=== PATIENT | female | born 1960 | race Two or more races ===

== ENCOUNTER 2018-01-05 14:13 | Emergency (ER) | payer BC ==
[~2018-01-05] VITALS: Ht 172.7 cm; Wt 117.9 kg
[~2018-01-05 14:13] MED LIST: CHOL10002 PO; CIPR500T PO; HYDR12.53 PO; LOSA100T7 PO; METR250T PO
[2018-01-05 14:38] LABS: BILIRUBIN,URINE NEGATIVE (NEG); CLARITY,URINE CLEAR; COLOR,URINE YELLOW; NITRITE,URINE NEGATIVE (NEG); PROTEIN,URINE NEGATIVE (NEG-TRACE); UROBILINOGEN,URINE 0.2 mg/dL (0.2 mg/dL)
--- NOTE | 2018-01-05 14:41 | PHYS DOC ---
Adult General Chief Complaint Chief Complaint: ABDOMINAL PAIN HPI HPI Patient is a 57 year old female with history of hypertension, high cholesterol , who presents today complaining of a cramping 8 out of 10 bilateral lower abdominal pain that has been going on intermittently for the last 3 days. Patient denies anything exacerbating or making the pain better. She is also complaining of nausea with no vomiting and loose stools. Denies any hematemesis or melena. PCP Dr. Melo Review of Systems Review of Systems Constitutional: Denies fever or chills [] Eyes: Denies change in visual acuity, redness, or eye pain [] HENT: Denies nasal congestion or sore throat [] Respiratory: Denies cough or shortness of breath [] Cardiovascular: No additional information not addressed in HPI [] GI: Reports lower abdominal cramping, nausea, diarrhea, denies any vomiting. : Denies dysuria or hematuria [] Musculoskeletal: Denies back pain or joint pain [] Integument: Denies rash or skin lesions [] Neurologic: Denies headache, focal weakness or sensory changes [] All other systems were reviewed and found to be within normal limits, except as documented in this note. Current Medications Current Medications Current Medications Medications (Trade) Dose Ordered Sig/Karan Start Time Stop Time Status Last Admin Dose Admin Dicyclomine HCl (Bentyl) 20 mg 1X ONCE 01/05/18 14:45 01/05/18 14:46 DC 01/05/18 15:03 20 MG Info (CONTRAST GIVEN -- Rx MONITORING) 1 each PRN DAILY PRN 01/05/18 15:30 01/07/18 15:29 Iohexol (Omnipaque 300 Mg/ml) 75 ml 1X ONCE 01/05/18 15:15 01/05/18 15:18 DC 01/05/18 15:27 75 ML Losartan Potassium (Cozaar) 25 mg 1X STAT 01/05/18 14:35 01/05/18 14:39 DC 01/05/18 14:46 25 MG Metoprolol Tartrate (Lopressor Vial) 5 mg 1X ONCE 01/05/18 14:45 01/05/18 14:46 DC 01/05/18 15:04 5 MG Ondansetron HCl (Zofran) 4 mg 1X ONCE 01/05/18 14:45 01/05/18 14:46 DC 01/05/18 15:04 4 MG Sodium Chloride 1,000 ml @ 1,000 mls/hr 1X ONCE 01/05/18 14:45 01/05/18 15:44 DC 01/05/18 15:03 1,000 MLS/HR Allergies Allergies Allergies Coded Allergies Type Severity Reaction Last Updated Verified Penicillins Allergy Intermediate Hives 01/18/14 Yes Physical Exam Physical Exam Constitutional: Well developed, well nourished, no acute distress, non-toxic appearance. [] HENT: Normocephalic, atraumatic, bilateral external ears normal, oropharynx moist, no oral exudates, nose normal. [] Eyes: PERRLA, EOMI, conjunctiva normal, no discharge. [] Neck: Normal range of motion, no tenderness, supple, no stridor. [] Cardiovascular:Heart rate regular rhythm, no murmur [] Lungs & Thorax: Bilateral breath sounds clear to auscultation [] Abdomen: Bowel sounds normal, soft, no tenderness, no masses, no pulsatile masses. [] Skin: Warm, dry, no erythema, no rash. [] Back: No tenderness, no CVA tenderness. [] Extremities: No tenderness, no cyanosis, no clubbing, ROM intact, no edema. [] Neurologic: Alert and oriented X 3, normal motor function, normal sensory function, no focal deficits noted. [] Psychologic: Affect normal, judgement normal, mood normal. [] Current Patient Data Vital Signs Vital Signs Date Time Temp Pulse Resp B/P (MAP) Pulse Ox O2 Delivery O2 Flow Rate FiO2 01/05/18 15:04 184/81 01/05/18 14:46 92 01/05/18 14:13 98.2 20 97 Room Air 98.2 Lab Values Laboratory Tests Test 01/05/18 14:15 01/05/18 14:38 01/05/18 14:55 Urine Collection Type Unknown Urine Color Yellow Urine Clarity Clear Urine pH 6.0 Urine Specific Alba 1.015 Urine Protein Negative mg/dL (NEG-TRACE) Urine Glucose (UA) Negative mg/dL (NEG) Urine Ketones (Stick) Negative mg/dL (NEG) Urine Blood Trace (NEG) Urine Nitrite Negative (NEG) Urine Bilirubin Negative (NEG) Urine Urobilinogen Dipstick 0.2 mg/dL (0.2 mg/dL) Urine Leukocyte Esterase Negative (NEG) Urine RBC 0 /HPF (0-2) Urine WBC Occ /HPF (0-4) Urine Squamous Epithelial Cells Many /LPF Urine Bacteria Moderate /HPF (0-FEW) Sodium Level 139 mmol/L (136-145) Potassium Level 3.6 mmol/L (3.5-5.1) Chloride Level 105 mmol/L (98-107) Carbon Dioxide Level 22 mmol/L (21-32) Anion Gap 12 (6-14) Blood Urea Nitrogen 9 mg/dL (7-20) Creatinine 0.8 mg/dL (0.6-1.0) Estimated GFR (Cockcroft-Gault) 74.5 BUN/Creatinine Ratio 11 (6-20) Glucose Level 139 mg/dL (70-99) H Calcium Level 9.2 mg/dL (8.5-10.1) Total Bilirubin 0.5 mg/dL (0.2-1.0) Aspartate Amino Transferase (AST) 28 U/L (15-37) Alanine Aminotransferase (ALT) 47 U/L (14-59) Alkaline Phosphatase 147 U/L (46-116) H Total Protein 7.9 g/dL (6.4-8.2) Albumin 3.1 g/dL (3.4-5.0) L Albumin/Globulin Ratio 0.6 (1.0-1.7) L Lipase 114 U/L (73-393) White Blood Count 8.5 x10^3/uL (4.0-11.0) Red Blood Count 4.47 x10^6/uL (3.50-5.40) Hemoglobin 13.3 g/dL (12.0-15.5) Hematocrit 38.6 % (36.0-47.0) Mean Corpuscular Volume 86 fL (79-100) Mean Corpuscular Hemoglobin 30 pg (25-35) Mean Corpuscular Hemoglobin Concent 34 g/dL (31-37) Red Cell Distribution Width 15.5 % (11.5-14.5) H Platelet Count 175 x10^3/uL (140-400) Neutrophils (%) (Auto) 68 % (31-73) Lymphocytes (%) (Auto) 20 % (24-48) L Monocytes (%) (Auto) 10 % (0-9) H Eosinophils (%) (Auto) 1 % (0-3) Basophils (%) (Auto) 1 % (0-3) Neutrophils # (Auto) 5.8 x10^3uL (1.8-7.7) Lymphocytes # (Auto) 1.7 x10^3/uL (1.0-4.8) Monocytes # (Auto) 0.8 x10^3/uL (0.0-1.1) Eosinophils # (Auto) 0.1 x10^3/uL (0.0-0.7) Basophils # (Auto) 0.0 x10^3/uL (0.0-0.2) Laboratory Tests 01/05/18 14:55 Laboratory Tests 01/05/18 14:38 EKG EKG [] Radiology/Procedures Radiology/Procedures []PROCEDURE: CT ABD PELV W/ IV CONTRST ONLY Examination: CT of the abdomen pelvis with IV contrast HISTORY: History of abdominal pain, nausea, diarrhea COMPARISON: 08/17/2011 TECHNIQUE: Axial CT images of the abdomen pelvis were performed with IV contrast. Coronal and sagittal reformats are performed. Exposure: One or more of the following individualized dose reduction techniques were utilized for this examination: 1. Automated exposure control 2. Adjustment of the mA and/or kV according to patient size 3. Use of iterative reconstruction technique FINDINGS: Minimal bibasilar lung atelectasis. No evidence of free air identified in the abdomen. There is mild decreased attenuation noted in the liver likely hepatic steatosis. The visualized spleen, adrenals grossly appears unremarkable. The gallbladder is minimally distended. The the stomach is mildly distended. The visualized pancreas grossly appears unremarkable. The small bowel is nondilated. The appendix is normal. Feces and gas noted in the colon. Multiple sigmoid colon diverticulosis identified. There is moderate to severe inflammatory fat stranding identified in the distal descending colon with moderate focal thickening of the distal descending colon wall likely acute diverticulitis. Urinary bladder is mildly distended. Bilateral kidneys enhance symmetrically. No evidence of lytic bony destructive lesion. IMPRESSION: 1. Moderate to severe inflammatory fat stranding identified in the distal descending colon likely acute diverticulitis. There is focal thickening of the distal descending colon wall probably due to underlying inflammation. Follow-up colonoscopy is recommended after acute episode is resolved to exclude malignancy. 2. Hepatic steatosis. Electronically signed by: Leobardo Macias MD (01/05/2018 3:45 PM) [id number] DICTATED and SIGNED BY: LEOBARDO MACIAS MD DATE: 01/05/18 1537 Course & Med Decision Making Course & Med Decision Making Pertinent Labs and Imaging studies reviewed. (See chart for details) This is a 57-year-old female patient presenting to the ED today with complaints of abdominal cramping nausea and diarrhea for 3 days. CBC with normal WBC, normal hemoglobin and hematocrit. Chemistry with ALK 147. Urine analysis is contaminated though no infection. CT of the abdomen and pelvic is noted for diverticulitis no abscess. Follow-up colonoscopy was recommended after infection is cleared up. Instructed patient to follow-up with PCP or GI to schedule the colonoscopy. Discharged on Cipro, Flagyl, hydrocodone and Zofran. Also given prescription for dicyclomine. Provided return precautions and discharged in stable condition. Emphasis to patient the importance of taking her blood pressure medications, blood pressure was 213/99 on arrival to the ED, she had not taken any of her medications. We gave her medicines, blood pressures come down to 160s over 70s. She has known cardiac or neurological symptoms. Dragon Disclaimer Dragon Disclaimer This electronic medical record was generated, in whole or in part, using a voice recognition dictation system. Departure Departure Impression: Primary Impression: Acute diverticulitis Additional Impression: Hypertension Disposition: 01 HOME, SELF-CARE Condition: STABLE Referrals: NON,STAFF (PCP) TERRENCE KEENAN MD Follow-up with your primary care doctor as well as the provided medical educator in 2 weeks for follow-up colonoscopy. Patient Instructions: Diverticulitis, [id number], Hypertension Additional Instructions: You evaluated in the emergency room and noted to have diverticulitis. We'll put you on antibiotics, ensure you complete them. Follow-up with the provided medical educator in 2 weeks, they need to do a colonoscopy to ensure the infection has cleared up and there is no other disease in your colon. Scripts Hydrocodone/Apap 5-325 (NORCO 5-325 TABLET) 1 Each Tablet 1 TAB PO Q6HRS PRN for PAIN, #12 TAB Prov: MUTUNGA,KATHERINE [employer] 01/05/18 Dicyclomine Hcl (DICYCLOMINE HCL) 20 Mg Tablet 1 TAB PO TID, #30 TAB 1 Refill Prov: MUTUNGA,KATHERINE [employer] 01/05/18 Ondansetron (ZOFRAN ODT) 4 Mg Tab.rapdis 1 TAB SL Q8HRS, #15 TAB Prov: KATHERINE MONIQUE APRN 01/05/18 Metronidazole (FLAGYL) 500 Mg Tablet 500 MG PO TID, #30 TAB Prov: KATHERINE MONIQUE APRN 01/05/18 Ciprofloxacin Hcl (CIPRO) 500 Mg Tablet 1 TAB PO BID, #20 TAB Prov: KATHERINE MONIQUE APRN 01/05/18 Problem Qualifiers Additional Impression: Hypertension Hypertension type: unspecified Qualified Codes: I10 - Essential (primary) hypertension KATHERINE MONIQUE APRN Jan 05, 2018 14:41
[2018-01-05] MEDS: LOSARTAN POTASSIUM 25 MG TABLET. PO STA (14:46)
[2018-01-05 14:49] LABS: BACTERIA,URINE MODERATE /HPF (0-FEW); RBC,URINE 0 /HPF (0-2); WBC,URINE OCC /HPF (0-4)
[2018-01-05 14:50] LABS: SQUAMOUS EPITHELIAL CELL,UR MANY /LPF
[2018-01-05 14:57] LABS: CALCIUM 9.2 mg/dL (8.5-10.1); CREATININE 0.8 mg/dL (0.6-1.0); GFR 74.5; POTASSIUM 3.6 mmol/L (3.5-5.1)
[2018-01-05 15:03] LABS: ALBUMIN 3.1 g/dL (3.4-5.0); ALBUMIN/GLOBULIN RATIO 0.6 (1.0-1.7); TOTAL BILIRUBIN 0.5 mg/dL (0.2-1.0); TOTAL PROTEIN 7.9 g/dL (6.4-8.2)
[2018-01-05] MEDS: DICYCLOMINE HCL 10 MG CAPSULE PO ONE (15:03)
[2018-01-05] MEDS: IV NORMAL SALINE 1000ML BAG 1,000 ML IV ONE (15:03)
[2018-01-05] MEDS: ONDANSETRON PF 4 MG/2 ML VIAL. IV ONE (15:04)
[2018-01-05] MEDS: METOPROLOL TARTRATE 5 MG/5 ML VIAL. IVP ONE (15:04)
[2018-01-05 15:21] LABS: BASO % 1 % (0-3); EOS # 0.1 x10^3/uL (0.0-0.7); EOS % 1 % (0-3); HEMATOCRIT 38.6 % (36.0-47.0); HEMOGLOBIN 13.3 g/dL (12.0-15.5); LYMPH # 1.7 x10^3/uL (1.0-4.8); LYMPH % 20 % (24-48); MEAN CORPUSCULAR HEMOGLOBIN 30 pg (25-35); MEAN CORPUSCULAR HGB CONC 34 g/dL (31-37); MEAN CORPUSCULAR VOLUME 86 fL (79-100); MONO # 0.8 x10^3/uL (0.0-1.1); MONO % 10 % (0-9); NEUT # 5.8 x10^3uL (1.8-7.7); NEUT % 68 % (31-73); PLATELET COUNT 175 x10^3/uL (140-400); RED BLOOD COUNT 4.47 x10^6/uL (3.50-5.40); RED CELL DISTRIBUTION WIDTH 15.5 % (11.5-14.5); WHITE BLOOD COUNT 8.5 x10^3/uL (4.0-11.0)
[2018-01-05] MEDS: IOHEXOL 300 MG/ML 100ML VIAL. IV ONE (15:27)
[2018-01-05] MEDS ORDERED: CONTRAST GIVEN. MC PRN (15:30)
--- NOTE | 2018-01-05 15:48 | RAD ---
Examination: CT of the abdomen pelvis with IV contrast HISTORY: History of abdominal pain, nausea, diarrhea COMPARISON: 08/17/2011 TECHNIQUE: Axial CT images of the abdomen pelvis were performed with IV contrast. Coronal and sagittal reformats are performed. Exposure: One or more of the following individualized dose reduction techniques were utilized for this examination: 1. Automated exposure control 2. Adjustment of the mA and/or kV according to patient size 3. Use of iterative reconstruction technique FINDINGS: Minimal bibasilar lung atelectasis. No evidence of free air identified in the abdomen. There is mild decreased attenuation noted in the liver likely hepatic steatosis. The visualized spleen, adrenals grossly appears unremarkable. The gallbladder is minimally distended. The the stomach is mildly distended. The visualized pancreas grossly appears unremarkable. The small bowel is nondilated. The appendix is normal. Feces and gas noted in the colon. Multiple sigmoid colon diverticulosis identified. There is moderate to severe inflammatory fat stranding identified in the distal descending colon with moderate focal thickening of the distal descending colon wall likely acute diverticulitis. Urinary bladder is mildly distended. Bilateral kidneys enhance symmetrically. No evidence of lytic bony destructive lesion. IMPRESSION: 1. Moderate to severe inflammatory fat stranding identified in the distal descending colon likely acute diverticulitis. There is focal thickening of the distal descending colon wall probably due to underlying inflammation. Follow-up colonoscopy is recommended after acute episode is resolved to exclude malignancy. 2. Hepatic steatosis. Electronically signed by: Leobardo Macias MD (01/05/2018 3:45 PM) [id number]
[2018-01-05] MEDS ORDERED: CIPR500T94 PO (16:17)
[2018-01-05] MEDS ORDERED: ONDA4TAB10 SL (16:17)
[2018-01-05] MEDS ORDERED: HYDR-971 PO (16:17)
[2018-01-05] MEDS ORDERED: METR500T PO (16:17)
[2018-01-05] MEDS ORDERED: DICY20TA3 PO (16:17)
[2018-01-05 17:00] VITALS: BP 153/71
== END 2018-01-05 17:05 | disposition home or self-care (01) ==
LOC: ER 14:13
DX: K57.30 Diverticulosis of large intestine without perforation or abscess without bleeding (principal); I10 Essential (primary) hypertension; R19.7 Diarrhea, unspecified; E78.00 Pure hypercholesterolemia, unspecified; Z88.0 Allergy status to penicillin
CPT/HCPCS: 36415; 74177; 80053; 81001; 83690; 85025; 87086; 96361; 96374; 96375; 99285; J2405; J3490; J7030; Q9967